=== PATIENT | male | born 1995 | race Caucasian/White ===

== ENCOUNTER 2018-07-15 20:19 | Emergency (ER) | payer BC, OTHER ==
[~2018-07-15] VITALS: Ht 188 cm; Wt 108.9 kg
--- OUTSIDE RECORDS SUMMARY | 2018-07-15 20:25 | XMS REPORT ---
Author Author MANUELA MORALES Organization [facility] Address [address] [place] [address] Care Team Providers Care Modern Languages Professor Name Role Phone MANUELA MORALES Unavailable PROBLEMS Type Condition ICD9-CM Code MLZ36-HY Code Onset Dates Condition Status SNOMED Code Problem Other chronic pain G89.29 Active 13620773 Problem Screening for cystic fibrosis Z13.228 Active [id number] ALLERGIES No Information ENCOUNTERS Encounter Location Date Diagnosis [address] [address] Feb, Family history of diabetes mellitus Z83.[address] [address] Feb, Family history of diabetes mellitus Z83.3 [place] [id number] [place] [address] 8909 Jan, Rash R21 [facility] [place] [id number] [place] [address]38 Nov, Acute non-recurrent maxillary sinusitis J01.00 and BMI 45.0 -49.9, adult Z68.42 [place] [id number] [place] [address] 04261[address] 9739 Oct, Low back pain M54.[address] [address] May, Elevated TSH R94.6 [place] [id number] [place] [address] 58[address] 5113 May, Family history of early CAD Z82.49 ; Lipoma of right upper extremity D17.21 ; Chest pain, unspecified type R07.9 ; Family history of hypertension Z82.49 ; Lipoma of back D17.1 ; Low back pain M54.5 and Other chronic pain G89.29 [facility] [address] [place] [address]10- [address] May, Lipoma of right upper extremity D17.21 ; Lipoma of back D17.1 ; Chest pain, unspecified type R07.9 ; Family history of early CAD Z82.49 ; Family history of hypertension Z82.49 ; Low back pain M54.5 and Other chronic pain G89.29 [facility] WALK IN [place] [id number] [place] [address]3389 Nov, Sore throat J02.9 and Acute non-recurrent streptococcal tonsillitis J03.00 [facility] WALK IN [address] [address] May, Acute suppurative otitis media of left ear without spontaneous rupture of tympanic membrane, recurrence not specified H66.002 [facility] WALK IN [address] [address] Nov, Sore throat J02.9 [facility] [address] [id number] Oct, Visit for dental examination Z01.20 [facility] [address] [id number] Jun, Dental examination Z01.20 [facility] WALK IN [place] [id number] [place] [address]8231 Jun, Pharyngitis J02.9 ; Fever R50.9 and Influenza A J10.1 [facility] [address] [place] [address] 81206- [address] Mar, Screening for cystic fibrosis Z13.228 and Wellness examination Z00.00 [facility] [address] [id number] 14 Mar, 2015 Encounter for dental examination Z01.20 [facility] [address] [place] [address] [place] [id number] Oct, Dental examination V72.2 [facility] [address] [facility] [id number] [place] [id number] Sep, Dental examination V72.2 [facility] [address] [id number] [address] 14 Jul, 2014 [facility] [address] [facility] [id number] [place] [address] Jul, [facility] [address] [facility] [id number] [id number] August, [facility] [address] [id number] [address] August, IMMUNIZATIONS No Known Immunizations SOCIAL HISTORY Never Assessed REASON FOR VISIT Lab (walk-in) PLAN OF CARE Activity Details Pending Test LIPID PANEL Pending Test CMP Pending Test CBC Pending Test TSH VITAL SIGNS MEDICATIONS Unknown Medications RESULTS No Results PROCEDURES Procedure Date Ordered Result Body Site COMPLETE CBC W/AUTO DIFF WBC Mar 18, 2018 COMPREHEN METABOLIC PANEL Mar 18, 2018 LIPID PANEL Mar 18, 2018 ASSAY THYROID STIM HORMONE Mar 18, 2018 VENIPUNCT, ROUTINE* Mar 18, 2018 INSTRUCTIONS MEDICATIONS ADMINISTERED No Known Medications MEDICAL (GENERAL) HISTORY Type Description Date Medical History bronchitis 2014
--- OUTSIDE RECORDS SUMMARY | 2018-07-15 20:25 | XMS REPORT ---
Author Author MANUELA MORALES Organization [facility] Address [address] [place] [address] Care Team Providers Care Real Estate Attorney Name Role Phone MANUELA MORALES Unavailable PROBLEMS Type Condition ICD9-CM Code SAL29-JT Code Onset Dates Condition Status SNOMED Code Problem Other chronic pain G89.29 Active 40677469 Problem Screening for cystic fibrosis Z13.228 Active [id number] ALLERGIES No Information ENCOUNTERS Encounter Location Date Diagnosis [address] [address] Feb, Family history of diabetes mellitus Z83.[address] [address] Jan, Rash R21 [facility] IN [facility] [address] [address] 16 Nov, 2017 Acute non-recurrent maxillary sinusitis J01.00 and BMI 45.0 -49.9, adult Z68.42 [place] [id number] [place] [address] 3943 Oct, Low back pain M54.5 [place] [address] [address] May, Elevated TSH R94.[address] [address] 16 May, 2017 Family history of early CAD Z82.49 ; Lipoma of right upper extremity D17.21 ; Chest pain, unspecified type R07.9 ; Family history of hypertension Z82.49 ; Lipoma of back D17.1 ; Low back pain M54.5 and Other chronic pain G89.29 [facility] [address] [place] [address] May, Lipoma of right upper extremity D17.21 ; Lipoma of back D17.1 ; Chest pain, unspecified type R07.9 ; Family history of early CAD Z82.49 ; Family history of hypertension Z82.49 ; Low back pain M54.5 and Other chronic pain G89.29 [facility] CARE [address] [place] [address] Nov, Sore throat J02.9 and Acute non-recurrent streptococcal tonsillitis J03.00 [facility] WALK IN [address] [address] May, Acute suppurative otitis media of left ear without spontaneous rupture of tympanic membrane, recurrence not specified H66.002 [facility] WALK IN [facility] [address] [place] [address] Nov, Sore throat J02.9 [facility] [address] [id number] Oct, Visit for dental examination Z01.20 [facility] [address] [id number] Jun, Dental examination Z01.20 [facility] WALK IN [address] [address] Jun, Pharyngitis J02.9 ; Fever R50.9 and Influenza A J10.1 [facility] [address] [address] Mar, Screening for cystic fibrosis Z13.228 and Wellness examination Z00.00 [facility] [address] [id number] 14 Mar, 2015 Encounter for dental examination Z01.20 [facility] [address] [id number] Oct, Dental examination V72.2 [facility] [address] [id number] Sep, Dental examination V72.2 [facility] [address] [facility] [id number] [address] Jul, [facility] [address] [facility] [id number] [place] [address] Jul, [facility] 120 [facility] [id number] [id number] August, [facility] [address] [facility] [id number] [place] [address] August, IMMUNIZATIONS No Known Immunizations SOCIAL HISTORY Never Assessed REASON FOR VISIT Labs PLAN OF CARE VITAL SIGNS MEDICATIONS Unknown Medications RESULTS No Results PROCEDURES No Known procedures INSTRUCTIONS MEDICATIONS ADMINISTERED No Known Medications MEDICAL (GENERAL) HISTORY Type Description Date Medical History 2014
--- OUTSIDE RECORDS SUMMARY | 2018-07-15 20:25 | XMS REPORT ---
Author Author MANUELA MORALES Organization [employer] Address Unknown Phone Unavailable Care Team Providers Care Educational Resource Coordinator Name Role Phone MANUELA MORALES CP Unavailable Allergies, Adverse Reactions, Alerts Substance Reaction Event Type Penicillamine Info Not Available Drug Allergy Cefaclor Info Not Available Drug Allergy Problems Problem Type Condition Code Onset Dates Condition Status Problem Lumbago 724.2 Active Assessment Sore throat J02.9 Active Problem Screening for cystic fibrosis Z13.228 Active Medications Medication Code System Code Instructions Start Date End Date Status Dosage Bactrim DS [facility] [address]-14 800-160 MG Orally Twice a day Dec 13, 2015 Dec 23, 2015 1 tablet Procedures Procedure Coding System Code Date Office Visit, Est Pt., Level 3 CPT-4 35187 Dec 13, 2015 STREP A ASSAY W/OPTIC CPT-4 32877 Dec 13, 2015 Vital Signs Date/Time: Dec 13, 2015 Cardiac Monitoring Heart Rate 104 bpm Weight 268.6 lbs Height 62 in BMI 49.12 Index Blood Pressure Diastolic 80 mmHg Blood Pressure Systolic 120 mmHg Results No Known Results Summary Purpose [employer] Submission
--- OUTSIDE RECORDS SUMMARY | 2018-07-15 20:25 | XMS REPORT ---
Author Author MANUELA MORALES Organization [facility] Address [address] [place] [address] Care Team Providers Care Wing Coverer Name Role Phone MANUELA MORALES Unavailable PROBLEMS Type Condition ICD9-CM Code XVT16-PK Code Onset Dates Condition Status SNOMED Code Problem Other chronic pain G89.29 Active 87444934 Problem Screening for cystic fibrosis Z13.228 Active 754772181 ALLERGIES No Information ENCOUNTERS Encounter Location Date Diagnosis [facility] [address] [place] [address]10- [address] May, Elevated TSH R94.[address] [address] 16 May, 2017 Family history of early CAD Z82.49 ; Lipoma of right upper extremity D17.21 ; Chest pain, unspecified type R07.9 ; Family history of hypertension Z82.49 ; Lipoma of back D17.1 ; Low back pain M54.5 and Other chronic pain G89.29 [facility] [address] [place] [id number] [place] [address]327- 8669 12 May, 2017 Lipoma of right upper extremity D17.21 ; Lipoma of back D17.1 ; Chest pain, unspecified type R07.9 ; Family history of early CAD Z82.49 ; Family history of hypertension Z82.49 ; Low back pain M54.5 and Other chronic pain G89.29 [facility] WALK IN [facility] [address] [place] [id number] [place] [address] Nov, Sore throat J02.9 and Acute non-recurrent streptococcal tonsillitis J03.00 [facility] IN [facility] [address] [place] [id number] [place] [address]255 -[address]30 May, Acute suppurative otitis media of left ear without spontaneous rupture of tympanic membrane, recurrence not specified H66.002 [facility] IN CARE [address] [place] [address] -7416 Nov, Sore throat J02.9 [facility] [address] [place] [address] [id number] Oct, Visit for dental examination Z01.20 [facility] [address] [place] [id number] [place] [id number] Jun, Dental examination Z01.20 [facility] IN CARE [address] [place] [id number] [place] [address] -0536 Jun, Pharyngitis J02.9 ; Fever R50.9 and Influenza A J10.1 [facility] [address] [place] [id number] [place] [address] 82903- 8316 Mar, Screening for cystic fibrosis Z13.228 and Wellness examination Z00.00 [facility] [address] [place] [id number] [place] [id number] Mar, Encounter for dental examination Z01.20 [facility] [address] [place] [id number] [place] [address] [id number] Oct, Dental examination V72.2 [facility] [address] [place] [id number] [place] [address] [id number] Sep, Dental examination V72.2 [facility] [address] [place] [address] 42760- 8366 Jul, [facility] [address] [place] [address] 92542- 7806 Jul, [facility] [id number] [place] [id number] August, [facility] [address] [place] [id number] [place] [address] 83867- 6936 August, IMMUNIZATIONS No Known Immunizations SOCIAL HISTORY Never Assessed REASON FOR VISIT lab results PLAN OF CARE VITAL SIGNS MEDICATIONS Unknown Medications RESULTS No Results PROCEDURES No Known procedures INSTRUCTIONS MEDICATIONS ADMINISTERED No Known Medications MEDICAL (GENERAL) HISTORY Type Description Date Medical History bronchitis 2014
--- OUTSIDE RECORDS SUMMARY | 2018-07-15 20:25 | XMS REPORT ---
Author Author MANUELA MORALES Organization [facility] Address [address] [place] [address] Care Team Providers Care Agriculture Laboratory Technician Name Role Phone MANUELA MORALES Unavailable PROBLEMS Type Condition ICD9-CM Code LPU46-NK Code Onset Dates Condition Status SNOMED Code Problem Other chronic pain G89.29 Active 97247463 Problem Screening for cystic fibrosis Z13.228 Active 671351571 ALLERGIES Substance Reaction Event Type Date Status Penicillamine Unknown Drug Allergy Oct, Active Cefaclor Unknown Drug Allergy Oct, Active ENCOUNTERS Encounter Location Date Diagnosis [facility]ALK IN [facility] [address] [place] [id number] [place] [address] Nov, Acute non-recurrent maxillary sinusitis J01.00 and BMI 45.0 -49.9, adult Z68.42 [facility] [address] [place] [id number] [place] [address] 43099- 7760 Oct, Low back pain M54.5 [facility] [address] [place] [id number] [place] [address] 66122- 7489 May, Elevated TSH R94.[address] [address]- [address]67 May, Family history of early CAD Z82.49 ; Lipoma of right upper extremity D17.21 ; Chest pain, unspecified type R07.9 ; Family history of hypertension Z82.49 ; Lipoma of back D17.1 ; Low back pain M54.5 and Other chronic pain G89.29 [facility] [address] [place] [id number] [place] [address] 84318- 9109 12 May, 2017 Lipoma of right upper extremity D17.21 ; Lipoma of back D17.1 ; Chest pain, unspecified type R07.9 ; Family history of early CAD Z82.49 ; Family history of hypertension Z82.49 ; Low back pain M54.5 and Other chronic pain G89.29 [facility] [address] [address] Nov, Sore throat J02.9 and Acute non-recurrent streptococcal tonsillitis J03.00 [facility] WALK IN [facility] [address] [place] [address] 14354 -4916 May, Acute suppurative otitis media of left ear without spontaneous rupture of tympanic membrane, recurrence not specified H66.002 [facility] WALK IN [facility] [address] [place] [address] 90483 -1809 Nov, Sore throat J02.9 [facility] [address] [id number] Oct, Visit for dental examination Z01.20 [facility] [address] [id number] Jun, Dental examination Z01.20 [facility] WALK IN [facility] [address] [place] [id number] [place] [address] Jun, Pharyngitis J02.9 ; Fever R50.9 and Influenza A J10.[address] [address] Mar, Screening for cystic fibrosis Z13.228 and Wellness examination Z00.00 [facility] [address] [id number] Mar, Encounter for dental examination Z01.20 [facility] [address] [id number] Oct, Dental examination V72.2 [facility] [address] [id number] Sep, Dental examination V72.2 [facility] [address] [place] [address] [id number]- 3433 Jul, [facility] [address] [facility] [id number] [place] [address] Jul, [facility] [address] [facility] [id number] [place] [id number] August, [facility] [address] [facility] [id number] [place] [address] August, IMMUNIZATIONS No Known Immunizations SOCIAL HISTORY Never Assessed REASON FOR VISIT sciatica PLAN OF CARE VITAL SIGNS MEDICATIONS Medication Instructions Dosage Frequency Start Date End Date Duration Status PredniSONE 20 mg Orally Once a day 2 tablets 24h Oct, Oct, 05 days Active Meloxicam 7.5 MG Orally twice a day 1 tablet 12h Oct, 30 day(s ) Active RESULTS No Results PROCEDURES No Known procedures INSTRUCTIONS MEDICATIONS ADMINISTERED No Known Medications MEDICAL (GENERAL) HISTORY Type Description Date Medical History bronchitis 2014
--- OUTSIDE RECORDS SUMMARY | 2018-07-15 20:25 | XMS REPORT ---
Author Author ANDRE ERNANDEZ [facility] Address [address] [place] [address] Care Team Providers Care Membership Secretary Name Role Phone ANDRE ERNANDEZ Unavailable PROBLEMS Type Condition ICD9-CM Code QSM71-UA Code Onset Dates Condition Status SNOMED Code Problem Other chronic pain G89.29 Active 94496740 Problem Screening for cystic fibrosis Z13.228 Active 329820259 ALLERGIES Substance Reaction Event Type Date Status Penicillamine Unknown Drug Allergy Nov, Active Cefaclor Unknown Drug Allergy Nov, Active ENCOUNTERS Encounter Location Date Diagnosis [facility] [address] [address] Feb, Family history of diabetes mellitus Z83.3 [facility] [address] [address] Feb, Family history of diabetes mellitus Z83.3 [place] [address] [address] Jan, Rash R21 [facility] IN [facility] [address] [place] [id number] [place] [address] -[address] Nov, Acute non-recurrent maxillary sinusitis J01.00 and BMI 45.0 -49.9, adult Z68.42 [facility] [address] [place] [id number] [place] [address]972- 4643 Oct, Low back pain M54.5 [place] [address] [address] May, Elevated TSH R94.6 [place] [address] [address] May, Family history of early CAD Z82.49 ; Lipoma of right upper extremity D17.21 ; Chest pain, unspecified type R07.9 ; Family history of hypertension Z82.49 ; Lipoma of back D17.1 ; Low back pain M54.5 and Other chronic pain G89.29 [facility] [address] [place] [address]38- 38[address] May, Lipoma of right upper extremity D17.21 ; Lipoma of back D17.1 ; Chest pain, unspecified type R07.9 ; Family history of early CAD Z82.49 ; Family history of hypertension Z82.49 ; Low back pain M54.5 and Other chronic pain G89.29 [facility] W[facility] IN [address] [address] Nov, Sore throat J02.9 and Acute non-recurrent streptococcal tonsillitis J03.00 [facility] IN [address] [address] May, Acute suppurative otitis media of left ear without spontaneous rupture of tympanic membrane, recurrence not specified H66.002 [facility] IN [address] [address] Nov, Sore throat J02.9 [facility] [address] [id number] Oct, Visit for dental examination Z01.20 [facility] [address] [id number] Jun, Dental examination Z01.20 [facility] IN [address] [address] Jun, Pharyngitis J02.9 ; Fever R50.9 and Influenza A J10.1 [facility] [address] [place] [address] 36523- 2[address] Mar, Screening for cystic fibrosis Z13.228 and Wellness examination Z00.00 [facility] [address] [id number] [id number] Mar, Encounter for dental examination Z01.20 [facility] [address] [place] [id number] [id number] Oct, Dental examination V72.2 [facility] [address] [facility] [id number] [id number] Sep, Dental examination V72.2 [facility] [address], [place] [address] Jul, [facility] [address] [facility] [id number], [place] [address] Jul, [facility] [id number] [id number] August, [facility] [address] [facility] [id number], [place] [address] August, IMMUNIZATIONS Vaccine Route Administration Date Status DEXAMETHASONE 4MG/ML (PER 1 MG) OTH Other/Miscellaneous Dec 11, 2017 Administered DEPO MEDROL 40 MG/ML IM Intramuscular Dec 11, 2017 Administered SOCIAL HISTORY Never Assessed REASON FOR VISIT congestion x2 weeks- has tried multiple OTC JStrasserRN PLAN OF CARE Activity Details Follow Up prn Reason: VITAL SIGNS Height 62 in 2017-12-11 Weight 250.4 lbs 2017-12-11 Temperature 97.8 degrees Fahrenheit 2017-12-11 Heart Rate 80 bpm 2017-12-11 Respiratory Rate 20 2017-12-11 BMI 45.79 kg/m2 2017-12-11 Blood pressure systolic 130 mmHg 2017-12-11 Blood pressure diastolic 88 mmHg 2017-12-11 MEDICATIONS Medication Instructions Dosage Frequency Start Date End Date Duration Status Flonase 50 MCG/ACT Nasally Once a day 1 spray in each nostril 24h Nov, 30 day(s) Active Cyclobenzaprine HCl 10 mg Orally 2 times a day 1 tablet as needed 12h 12 May, 2017 Active Azithromycin 250 MG Orally Once a day 2 tablets on the first day, then 1 tablet daily for 4 days 24h Nov, Nov, 5 day(s) Active Meloxicam 7.5 MG Orally twice a day 1 tablet 12h 17 Oct, 2017 30 day(s ) Active Zyrtec Allergy 10 MG Orally Once a day 1 tablet 24h 16 Nov, 2017 15 Dec, 2017 30 day(s) Active RESULTS No Results PROCEDURES Procedure Date Ordered Result Body Site DEPO MEDROL 40 MG/ML Dec 11, 2017 DEXAMETHASONE 4MG/ML (PER 1 MG) Dec 11, 2017 THER/PROPH/DIAG INJ, SC/IM Dec 11, 2017 INSTRUCTIONS MEDICATIONS ADMINISTERED No Known Medications MEDICAL (GENERAL) HISTORY Type Description Date Medical History bronchitis 2014
--- OUTSIDE RECORDS SUMMARY | 2018-07-15 20:25 | XMS REPORT ---
Author Author MANUELA MORALES Organization [facility] Address [address] [place] [address] Care Team Providers Care Educational Manager Name Role Phone MANUELA MORALES Unavailable PROBLEMS Type Condition ICD9-CM Code [id number] Code Onset Dates Condition Status SNOMED Code Problem Other chronic pain G89.29 Active 73941063 Problem Screening for cystic fibrosis Z13.228 Active 170577505 ALLERGIES Substance Reaction Event Type Date Status Penicillamine Unknown Drug Allergy May, Active Cefaclor Unknown Drug Allergy May, Active ENCOUNTERS Encounter Location Date Diagnosis [id number] [place] [phone] May, Elevated TSH R94.6 [place] [id number] [place] [address] 4804 16 May, 2017 Family history of early CAD Z82.49 ; Lipoma of right upper extremity D17.21 ; Chest pain, unspecified type R07.9 ; Family history of hypertension Z82.49 ; Lipoma of back D17.1 ; Low back pain M54.5 and Other chronic pain G89.29 [address] [place] [address] [phone] May, Lipoma of right upper extremity D17.21 ; Lipoma of back D17.1 ; Chest pain, unspecified type R07.9 ; Family history of early CAD Z82.49 ; Family history of hypertension Z82.49 ; Low back pain M54.5 and Other chronic pain G89.29 [facility] [address] [place] [phone] Nov, Sore throat J02.9 and Acute non-recurrent streptococcal tonsillitis J03.00 [facility] [address], [place] [address] May, Acute suppurative otitis media of left ear without spontaneous rupture of tympanic membrane, recurrence not specified H66.002 [facility] [address] [place] [phone] Nov, Sore throat J02.9 [facility] [id number] [place] [address] [phone] Oct, Visit for dental examination Z01.20 [facility] [id number] [place] [address] [phone] Jun, Dental examination Z01.20 [facility] [id number] [place] [phone] Jun, Pharyngitis J02.9 ; Fever R50.9 and Influenza A J10.1 [facility] [id number] [place] [address] [phone] Mar, Screening for cystic fibrosis Z13.228 and Wellness examination Z00.00 [facility] [id number] [place] [address] [phone] Mar, Encounter for dental examination Z01.20 [facility] [id number] [place] [address] [phone] Oct, Dental examination V72.2 [facility] [id number] [place] [address] [phone] Sep, Dental examination V72.2 [facility] [address] [place] [address] [phone] Jul, [facility] [id number] [place] [address] [phone] Jul, [facility] [id number] [place] [address] [phone] August, [facility] [id number] [place] [address] [phone] August, IMMUNIZATIONS No Known Immunizations SOCIAL HISTORY Never Assessed REASON FOR VISIT bumps on arm/ all over. JjournotRDionna, back pain/ cyst. , Chest pain radiating to arm x 4 months off and on- nose bleeds when this happens. Not currently experiencing pain. [place] PLAN OF CARE VITAL SIGNS Height 62 in 2017-06-09 Weight 250.2 lbs 2017-06-09 Temperature 98.2 degrees Fahrenheit 2017-06-09 Heart Rate 76 bpm 2017-06-09 Respiratory Rate 20 2017-06-09 BMI 45.76 kg/m2 2017-06-09 Blood pressure systolic 130 mmHg 2017-06-09 Blood pressure diastolic 88 mmHg 2017-06-09 MEDICATIONS Medication Instructions Dosage Frequency Start Date End Date Duration Status Tamiflu 75 MG Orally Twice a day 1 capsule 12h Jun, 5 day(s) Not-Taking Cyclobenzaprine HCl 10 mg Orally 2 times a day 1 tablet as needed 12h 12 May, 2017 Active Zofran 8 MG Orally 2 times a day 1 tablet 12h Jun, 03 days Not -Taking PredniSONE 20 mg Orally Once a day 2 tablets 24h 12 May, 2017 17 May, 2017 05 days Active Diclofenac Sodium 75 MG Orally Twice a day 1 tablet with food or milk 12h 12 May, 2017 August, 30 day(s) Active Ibuprofen 800 mg take 1 tablet by Oral route 3 times per day with food PRN take w food August, Not-Taking Tylenol 8 Hour 650 MG Orally every 8 hrs PRN 1 tablet as needed Not-Taking RESULTS No Results PROCEDURES Procedure Date Ordered Result Body Site ELECTROCARDIOGRAM, TRACING Jun 09, 2017 INSTRUCTIONS MEDICATIONS ADMINISTERED No Known Medications MEDICAL (GENERAL) HISTORY Type Description Date Medical History bronchitis 2014
--- OUTSIDE RECORDS SUMMARY | 2018-07-15 20:25 | XMS REPORT ---
Author Author KALYAN MOODY Organization [employer] Address Unknown Phone Unavailable Care Team Providers Care File Conversion Operator Name Role Phone KALYAN MOODY CP Unavailable Allergies, Adverse Reactions, Alerts Substance Reaction Event Type Penicillamine Info Not Available Drug Allergy Cefaclor Info Not Available Drug Allergy Problems Problem Type Condition Code Onset Dates Condition Status Assessment Encounter for dental examination Z01.20 Active Problem Lumbago 724.2 Active Medications No Known Medications Procedures Procedure Coding System Code Date BITEWING - SINGLE FILM CPT-4 D0270 Apr 10, 2015 PROPHYLAXIS - ADULT CPT-4 D1110 Apr 10, 2015 PERIODIC ORAL EXAMINATION CPT-4 D0120 Apr 10, 2015 TOPICAL FLUORIDE VARNISH CPT-4 D1206 Apr 10, 2015 Vital Signs Date/Time: Apr 10, 2015 Blood Pressure Diastolic 79 mmHg Blood Pressure Systolic 119 mmHg Results No Known Results Summary Purpose [employer] Submission
--- OUTSIDE RECORDS SUMMARY | 2018-07-15 20:25 | XMS REPORT ---
Author Author KOTA BONILLA [facility] [employer] Address Unknown Phone Unavailable Care Team Providers Care Shoe Dyer Name Role Phone KOTA BONILLA CP Unavailable Allergies No Known Allergies Problems Problem Type Condition ICD-9 Code Onset Dates Condition Status Assessment Dental examination V72.2 Active Problem Lumbago 724.2 Active Medications No Known Medications Procedures Procedure Coding System Code Date PULP CAP - INDIRECT CPT-4 D3120 November 18, 2014 Results No Known Results Summary Purpose [employer] Submission
--- OUTSIDE RECORDS SUMMARY | 2018-07-15 20:26 | XMS REPORT | Continuity of Care Document ---
Author Author [facility] Address Unknown Phone Unavailable Allergies Active Description Code Type Severity Reaction Onset Reported/Identified Relationship to Patient Clinical Status Yes Ceclor Drug Allergy N/A N/A 06/20/2009 Yes Penicillins Drug Allergy N/A N/A 06/20/2009 Medications There is no data. Problems Date Dx Coded Attending Type Code Diagnosis Diagnosed By 06/20/2009 RAIMUNDO ASIF DO 034.0 STREPTOCOCCAL SORE THROAT 06/20/2009 ADELAIDE CHAN APRN 034.0 STREPTOCOCCAL SORE THROAT 04/30/2010 RAIMUNDO ASIF DO 719.47 PAIN IN JOINT INVOLVING ANKLE AND FOOT 04/30/2010 ADELAIDE CHAN APRN 719.47 PAIN IN JOINT INVOLVING ANKLE AND FOOT 09/28/2010 RAIMUNDO ASIF DO 465.9 UPPER RESPIRATORY INFECTION 09/28/2010 ADELAIDE CHAN APRN 465.9 UPPER RESPIRATORY INFECTION 09/08/2013 RAIMUNDO ASIF DO 724.2 BACK PAIN, LOWER 09/08/2013 ADELAIDE CHAN APRN 724.2 BACK PAIN, LOWER 08/03/2014 ADELAIDE CHAN APRN 382.9 UNSPECIFIED OTITIS MEDIA 08/03/2014 ADELAIDE CHAN APRN 466.0 BRONCHITIS, ACUTE Procedures Code [place] [address] UA LONG DIP 09/08/2013 77563 NEBULIZER TREATMENT 08/03/2014 06115 OXIMETRY 08/03/2014 Results Test Result Range TSH - 06/13/17 08:26 TSH 0.35 mIU/L 0.40-4.50 LIPID PANEL - 03/18/18 08:45 CHOLESTEROL, TOTAL 136 mg/dL <200 HDL CHOLESTEROL 47 mg/dL >40 TRIGLYCERIDES 41 mg/dL <150 LDL-CHOLESTEROL 77 mg/dL (calc) NRG CHOL/HDLC RATIO 2.9 (calc) <5.0 NON HDL CHOLESTEROL 89 mg/dL (calc) <130 Encounters ACCT No. Visit Date/Time Discharge Status Pt. Type Provider Facility Loc./Unit Complaint [id number] 08/03/2014 15:18:00 08/03/2014 23:59:59 [facility] Outpatient ADELAIDE CHAN APRN [id number] 09/08/2013 10:20:00 09/08/2013 23:59:59 [facility] [place] [place] [id number] 05/22/2018 08:50:00 05/22/2018 23:59:59 [facility] Outpatient MANUELA MORALES APRN [facility] [id number] 03/18/2018 09:00:00 Document Registration [id number] 06/13/2017 08:00:00 Document Registration
--- OUTSIDE RECORDS SUMMARY | 2018-07-15 20:26 | XMS REPORT ---
Author Author JHONATAN Shaffer [facility]ALK IN [facility] Address [address] [place] [address] Care Team Providers Care Print Developer Automatic Name Role Phone JHONATAN Shaffer Unavailable PROBLEMS Type Condition ICD9-CM Code [id number] Code Onset Dates Condition Status SNOMED Code Problem Other chronic pain G89.29 Active 58764356 Problem Screening for cystic fibrosis Z13.228 Active 780935990 ALLERGIES Substance Reaction Event Type Date Status Penicillamine Unknown Drug Allergy Nov, Active Cefaclor Unknown Drug Allergy Nov, Active ENCOUNTERS Encounter Location Date Diagnosis [facility] [address] [place] [phone] May, Elevated TSH R94.6 [facility] [id number] [place] [address] [phone] 16 May, 2017 Family history of early CAD Z82.49 ; Lipoma of right upper extremity D17.21 ; Chest pain, unspecified type R07.9 ; Family history of hypertension Z82.49 ; Lipoma of back D17.1 ; Low back pain M54.5 and Other chronic pain G89.29 [facility] [id number] [place] [address] [phone] 12 May, 2017 Lipoma of right upper extremity D17.21 ; Lipoma of back D17.1 ; Chest pain, unspecified type R07.9 ; Family history of early CAD Z82.49 ; Family history of hypertension Z82.49 ; Low back pain M54.5 and Other chronic pain G89.29 [facility] [address] [place] [phone] Nov, Sore throat J02.9 and Acute non-recurrent streptococcal tonsillitis J03.00 [facility] [address], [place] [address] May, Acute suppurative otitis media of left ear without spontaneous rupture of tympanic membrane, recurrence not specified H66.002 [facility] [address] [place] [address] [phone] Nov, Sore throat J02.9 [facility] [address] [phone] Oct, Visit for dental examination Z01.20 [facility] [address] [phone] Jun, Dental examination Z01.20 [facility] [id number] [place] [address] [phone] Jun, Pharyngitis J02.9 ; Fever R50.9 and Influenza A J10.1 [facility] [id number] [place] [address] [phone] Mar, Screening for cystic fibrosis Z13.228 and Wellness examination Z00.00 [facility] [id number] [place] [address] [phone] Mar, Encounter for dental examination Z01.20 [facility] [id number] [place] [address] [phone] Oct, Dental examination V72.2 [facility] [id number] [place] [address] [phone] Sep, Dental examination V72.2 [facility] [address] [place] [address] [phone] Jul, [facility] [id number] [place] [address] [phone] Jul, [address] [place] [address] [phone] August, [facility] [id number] [place] [address] [phone] August, IMMUNIZATIONS No Known Immunizations SOCIAL HISTORY Never Assessed REASON FOR VISIT Sore throat for 2 days. head congestion also. payal, also has been getting severe headaches lately at work while. was wondering what he could take besides motrin PLAN OF CARE Activity Details Follow Up prn Reason: VITAL SIGNS Height 62 in 2016-12-24 Weight 277.6 lbs 2016-12-24 Temperature 98.0 degrees Fahrenheit 2016-12-24 Heart Rate 78 bpm 2016-12-24 Respiratory Rate 20 2016-12-24 BMI 50.77 kg/m2 2016-12-24 Blood pressure systolic 130 mmHg 2016-12-24 Blood pressure diastolic 80 mmHg 2016-12-24 MEDICATIONS Medication Instructions Dosage Frequency Start Date End Date Duration Status Azithromycin 250 MG Orally Once a day 2 tablets on the first day, then 1 tablet daily for 4 days 24h Nov, Dec, 5 day(s) Active RESULTS Name Result Date Reference Range STREP A (IN HOUSE) 2016-12-24 STREP A positive Control + Lot # [id number] Exp date jun 16 PROCEDURES Procedure Date Ordered Result Body Site STREP A ASSAY W/OPTIC Dec 24, 2016 INSTRUCTIONS MEDICATIONS ADMINISTERED No Known Medications MEDICAL (GENERAL) HISTORY Type Description Date Medical History bronchitis 2014
--- OUTSIDE RECORDS SUMMARY | 2018-07-15 20:26 | XMS REPORT ---
Author Author AND[facility] FERNANDEZ [facility] Address [address] [place] [address] Care Team Providers Care Nuclear Medicine Medical Director Name Role Phone ANDRE FERNANDEZ Unavailable PROBLEMS Type Condition ICD9-CM Code QJZ39-QG Code Onset Dates Condition Status SNOMED Code Problem Screening for cystic fibrosis Z13.228 Active 261303600 Problem Lumbago 724.2 Active 163569266 ALLERGIES Substance Reaction Event Type Date Status Penicillamine Unknown Drug Allergy May, Active Cefaclor Unknown Drug Allergy May, Active SOCIAL HISTORY Never Assessed PLAN OF CARE Activity Details Follow Up prn Reason: VITAL SIGNS Height 62 in 2016-06-18 Weight 285.2 lbs 2016-06-18 Temperature 98.2 degrees Fahrenheit 2016-06-18 Heart Rate 92 bpm 2016-06-18 Respiratory Rate 20 2016-06-18 BMI 52.16 kg/m2 2016-06-18 Blood pressure systolic 120 mmHg 2016-06-18 Blood pressure diastolic 86 mmHg 2016-06-18 MEDICATIONS Medication Instructions Dosage Frequency Start Date End Date Duration Status Azithromycin 250 MG Orally Once a day 2 tablets on the first day, then 1 tablet daily for 4 days 24h May, May, 5 day(s) Active RESULTS No Results PROCEDURES No Known procedures IMMUNIZATIONS No Known Immunizations MEDICAL (GENERAL) HISTORY Type Description Date Medical History bronchitis 2014
--- OUTSIDE RECORDS SUMMARY | 2018-07-15 20:26 | XMS REPORT ---
Author Author TRACEY JJ Organization [employer] Address Unknown Phone Unavailable Care Team Providers Care Dry Plasterer Helper Name Role Phone TRACEY JJ CP Unavailable Allergies, Adverse Reactions, Alerts Substance Reaction Event Type Penicillamine Info Not Available Drug Allergy Cefaclor Info Not Available Drug Allergy Problems Problem Type Condition Code Onset Dates Condition Status Problem Lumbago 724.2 Active Assessment Screening for cystic fibrosis Z13.228 Active Problem Screening for cystic fibrosis Z13.228 Active Assessment Wellness examination Z00.00 Active Medications No Known Medications Procedures Procedure Coding System Code Date GLYCATED HEMOGLOBIN TEST CPT-4 28894 Apr 27, 2015 COMPREHEN METABOLIC PANEL CPT-4 75780 Apr 27, 2015 CFTR GENE COM VARIANTS CPT-4 75809 Apr 27, 2015 VENIPUNCT, ROUTINE* CPT-4 89642 Apr 27, 2015 ASSAY THYROID STIM HORMONE CPT-4 56712 Apr 27, 2015 COMPLETE CBC W/AUTO DIFF WBC CPT-4 05808 Apr 27, 2015 Office Visit, Est Pt., Level 3 CPT-4 38842 Apr 27, 2015 LIPID PANEL CPT-4 12928 Apr 27, 2015 Vital Signs Date/Time: Apr 27, 2015 Temperature 97.7 F Weight 252 lbs Height 62 in BMI 46.09 Index Blood Pressure Diastolic 74 mmHg Blood Pressure Systolic 118 mmHg Cardiac Monitoring Heart Rate 80 bpm BMIPercentile 99.84 % Wt Percentile 99.26 % Results Name Result Date Reference Range Unit Abnormality Flag CBC ----Lymphs 32 92598421 % ----Neutrophils 58 01237161 % ----Baso (Absolute) 0.0 [id number] 0.0-0.2 x10E3/uL ----Hemoglobin 14.8 47298644 12.6-17.7 g/dL ----Eos (Absolute) 0.2 21494419 0.0-0.4 x10E3/uL ----Hematocrit 43.9 49966684 37.5-51.0 % ----Monocytes(Absolute) 0.6 66372284 0.1-0.9 x10E3/uL ----MCV 89 91777088 79-97 fL ----Lymphs (Absolute) 2.5 02091526 0.7-3.1 x10E3/uL ----MCH 30.1 11080419 26.6-33.0 pg ----Neutrophils (Absolute) 4.5 93623511 1.4-7.0 x10E3/uL ----MCHC 33.7 54071938 31.5-35.7 g/dL ----Immature Granulocytes 0 85378464 % ----Basos 0 52797853 % ----RDW 13.2 08131312 12.3-15.4 % ----Immature Grans (Abs) 0.0 70289846 0.0-0.1 x10E3/uL ----WBC 7.8 48403223 3.4-10.8 x10E3/uL ----Platelets 212 88157557 150-379 x10E3/uL ----Eos 2 63326604 % ----RBC 4.91 07366271 4.14-5.80 x10E6/uL ----Monocytes 8 90666146 % LIPID PANEL ----LDL Cholesterol Calc 86 98347921 0-109 mg/dL ----VLDL Cholesterol Magen 13 98706661 5-40 mg/dL ----Cholesterol, Total 147 27770492 100-169 mg/dL ----HDL Cholesterol 48 43995354 >39 mg/dL ----Triglycerides 63 26889992 0-89 mg/dL CYSTIC FIBROSIS MUTATION 97 ----Interpretation: One variant detected. [id number] A TSH ----TSH 2.360 82521068 0.450-4.500 uIU/mL CMP ----Potassium, Serum 4.5 47465428 3.5-5.2 mmol/L ----Sodium, Serum 142 06778776 134-144 mmol/L ----BUN/Creatinine Ratio 10 20150427 8- ----eGFR If Africn Am 118 51455592 >59 mL/min/1.73 ----eGFR If NonAfricn Am 102 76843068 >59 mL/min/1.73 ----Creatinine, Serum 1.05 55691303 0.76-1.27 mg/dL ----BUN 10 52184091 6-20 mg/dL ----Glucose, Serum 91 29547364 65-99 mg/dL ----AST (SGOT) 16 18474165 0-40 IU/L ----Globulin, Total 2.5 89822973 1.5-4.5 g/dL ----ALT (SGPT) 22 96655727 0-44 IU/L ----A/G Ratio 1.9 62340076 1.1-2.5 ----Bilirubin, Total 0.4 36650416 0.0-1.2 mg/dL ----Alkaline Phosphatase, S 113 67961400 39-117 IU/L ----Carbon Dioxide, Total 27 86418589 18-29 mmol/L ----Calcium, Serum 10.1 36943351 8.7-10.2 mg/dL ----Protein, Total, Serum 7.3 60875480 6.0-8.5 g/dL ----Albumin, Serum 4.8 35569544 3.5-5.5 g/dL ----Chloride, Serum 103 99499005 97-108 mmol/L PDF Report ----PDF Report1 [facility] [id number] Summary Purpose eClinicalWorks Submission
--- NOTE | 2018-07-15 20:46 | ED Chest Pain ---
General Chief Complaint: Chest Wall/Rib Pain Stated Complaint: CHEST PAIN Nursing Triage Note: c/o intermittant left chest pain, bilateral hand numbness x1 hr. reports stopping prozac approx. 3weeks ago. Nursing Sepsis Screen: No Definite Risk Source: patient Exam Limitations: no limitations History of Present Illness Date Seen by Provider: Jul 15, 2018 Time Seen by Provider: 20:56 Initial Comments 22-year-old male patient presents to the emergency department complaining of intermittent left chest pain beginning this afternoon while walking home from the park with his son. Pain radiates to the right side of the chest. Sharp in nature. Worse with deep breaths, movement. He reports bilateral hand tingling/ numbness times one hour which has resolved. Also noticed chills, rhinorrhea, nasal congestion, sore throat beginning this afternoon. 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 Patient stopped his Prozac 3 wks ago. He states he didn't feel like he needed it anymore. Last seen by Emile Boles in March. Currently on Pepcid for reflux and gastritis. Timing/Duration: 4-6 hours Severity/Quality: sharp Location: other (left chest) Radiation: other (radiates to the right chest.) Activities at Onset: other (walking home from the Park) Prior CP/Workup: no prior chest pain, no prior cardiac workup Modifying Factors: worse with breathing, worse with movement ASA po WHITE SOURER: No NTG SL WHITE SOURER: No Allergies and Home Medications Allergies Coded Allergies: Penicillins (Verified Allergy, Unknown, 07/15/18) cefaclor (Verified Allergy, Unknown, 07/15/18) Home Medications Albuterol Sulfate 1 Puff Puff, 2 PUFF IH Q6H PRN for SHORTNESS OF BREATH 1 PUFF = 90 MCG Prescribed by: KIMBERLY ESPARZA on 07/15/18 8109 Patient Home Medication List Home Medication List Reviewed: Yes Review of Systems Review of Systems Constitutional: chills; No diaphoresis, No dizziness, No fever; malaise EENTM: No Blurred Vision, No Double Vision, No Eye Pain, No Ear Pain; Nose Congestion, Throat Pain Respiratory: Denies Cough, Denies Orthopnea, Denies Shortness of Air, Denies SOA With Exertion, Denies Stridor, Denies Wheezing Cardiovascular: See HPI, Chest Pain; Denies Edema, Denies Irregular Heart Rate , Denies Lightheadedness, Denies Palpitations, Denies Syncope Gastrointestinal: Denies Abdomen Distended, Denies Abdominal Pain, Denies Constipated, Denies Diarrhea, Denies Difficulty Swallowing, Denies Nausea, Denies Poor Appetite, Denies Poor Fluid Intake, Denies Rectal Bleeding, Denies Vomiting Genitourinary: No Symptoms Reported Musculoskeletal: other (generalized bodyaches) Skin: no symptoms reported Psychiatric/Neurological: No Symptoms Reported Endocrine: No Symptoms Reported All Other Systems Reviewed Negative Unless Noted: Yes (Negative excepted noted.) Past Hrwjuis-Uscktz-Ownrdc Hx Past Med/Social Hx: Reviewed Nursing Past Med/Soc Hx Patient Social History Alcohol Use: Rarely Uses Recreational Drug Use: No Smoking Status: Never a Smoker Type Used: Smokeless Tobacco 2nd Hand Smoke Exposure: No Recent Foreign Travel: No Contact w/Someone Who Travel: No Recent Infectious Disease Expo: No Recent Hopitalizations: No Immunizations Up To Date Tetanus Booster (TDap): Unknown PED Vaccines UTD: Yes Seasonal Allergies Seasonal Allergies: No Past Medical History Surgeries: No Respiratory: No Cardiac: No Neurological: No Genitourinary: No Gastrointestinal: Yes Gastroesophageal Reflux Musculoskeletal: No Endocrine: No HEENT: No Cancer: No Psychosocial: Yes Anxiety, Depression Integumentary: No Blood Disorders: No Family Medical History Reviewed Nursing Family Hx No Pertinent Family Hx Physical Exam Vital Signs Vital Signs - First Documented 07/15/18 20:22 Temp 99.3 Pulse 90 Resp 20 B/P (MAP) 133/81 (98) Pulse Ox 98 O2 Delivery Room Air Capillary Refill : Less Than 3 Seconds Height, Weight, BMI Height: 6'2.00" Weight: 240lbs. oz. 108.596075dj; BMI Method:Stated General Appearance: No Apparent Distress, WD/WN HEENT: PERRL/EOMI, Pharyngeal Erythema; No Tonsillar Exudate; Tonsillar Enlargement, Other ((+) nasal congestion, rhinorrhea, slight swelling to the turbinates bilaterally. (+) fluid to the right TM without erythema or bulging. ) Neck: Full Range of Motion, Normal Inspection, Non Tender, Supple Respiratory: Lungs Clear, Normal Breath Sounds, No Accessory Muscle Use, No Respiratory Distress, Other (right sternocostal border TTP) Cardiovascular: Regular Rate, Rhythm, No Edema, No Gallop, No JVD, No Murmur, Normal Peripheral Pulses Gastrointestinal: Normal Bowel Sounds, No Organomegaly, Non Tender, Soft Extremity: Normal Capillary Refill, No Calf Tenderness, No Pedal Edema Neurologic/Psychiatric: Alert, Oriented x3, No Motor/Sensory Deficits, Normal Mood/Affect, sales attendant II-XII Norm as Tested Skin: Normal Color, Warm/Dry Progress/Results/Core Measures Results/Orders Lab Results Laboratory Tests Test 07/15/18 21:15 Range/Units White Blood Count 14.9 H 4.3-11.0 10^3/uL Red Blood Count 4.48 4.35-5.85 10^6/uL Hemoglobin 13.8 13.3-17.7 G/DL Hematocrit 40 40-54 % Mean Corpuscular Volume 88 80-99 FL Mean Corpuscular Hemoglobin 31 25-34 PG Mean Corpuscular Hemoglobin Concent 35 32-36 G/DL Red Cell Distribution Width 12.9 10.0-14.5 % Platelet Count 176 130-400 10^3/uL Mean Platelet Volume 11.4 H 7.4-10.4 FL Neutrophils (%) (Auto) 83 H 42-75 % Lymphocytes (%) (Auto) 11 L 12-44 % Monocytes (%) (Auto) 5 0-12 % Eosinophils (%) (Auto) 1 0-10 % Basophils (%) (Auto) 0 0-10 % Neutrophils # (Auto) 12.3 H 1.8-7.8 X 10^3 Lymphocytes # (Auto) 1.6 1.0-4.0 X 10^3 Monocytes # (Auto) 0.8 0.0-1.0 X 10^3 Eosinophils # (Auto) 0.1 0.0-0.3 10^3/uL Basophils # (Auto) 0.0 0.0-0.1 10^3/uL Neutrophils % (Manual) 77 % Lymphocytes % (Manual) 17 % Monocytes % (Manual) 3 % Eosinophils % (Manual) 2 % Basophils % (Manual) 1 % Band Neutrophils 0 % Blood Morphology Comment NORMAL Erythrocyte Sedimentation Rate 8 0-15 MM/HR Sodium Level 141 135-145 MMOL/L Potassium Level 3.8 3.6-5.0 MMOL/L Chloride Level 108 H 98-107 MMOL/L Carbon Dioxide Level 22 21-32 MMOL/L Anion Gap 11 5-14 MMOL/L Blood Urea Nitrogen 13 7-18 MG/DL Creatinine 0.92 0.60-1.30 MG/DL Estimat Glomerular Filtration Rate > 60 BUN/Creatinine Ratio 14 Glucose Level 99 70-105 MG/DL Calcium Level 9.7 8.5-10.1 MG/DL Corrected Calcium 9.4 8.5-10.1 MG/DL Magnesium Level 2.1 1.8-2.4 MG/DL Total Bilirubin 0.6 0.1-1.0 MG/DL Aspartate Amino Transf (AST/SGOT) 18 5-34 U/L Alanine Aminotransferase (ALT/SGPT) 22 0-55 U/L Alkaline Phosphatase 96 40-136 U/L Troponin I < 0.028 <0.028 NG/ML C-Reactive Protein High Sensitivity 0.31 0.00-0.50 MG/DL Total Protein 7.1 6.4-8.2 GM/DL Albumin 4.4 3.2-4.5 GM/DL TSH [place] Testing 1.52 0.35-4.94 UIU/ML Micro Results Microbiology 07/15/18 Influenza Types A,B Antigen ([facility]) - Final, Complete My Orders Orders - KIMBERLY ESPARZA PA Chest 1 View, Ap/Pa Only (07/15/18 20:54) Cbc With Automated Diff (07/15/18 20:54) Comprehensive Metabolic Panel (07/15/18 20:54) Magnesium (07/15/18 20:54) Thyroid Analyzer (07/15/18 20:54) Troponin I (07/15/18 20:54) Saline Lock/Iv-Start (07/15/18 20:54) Ekg Tracing (07/15/18 20:54) Ns Iv 1000 Ml (Sodium Chloride 0.9%) (07/15/18 21:09) Influenza A And B Antigens (07/15/18 21:09) Ketorolac Injection (Toradol Injection) (07/15/18 21:09) Manual Differential (07/15/18 21:15) Hs C Reactive Protein (07/15/18 21:34) Erythrocyte Sedimentation Rate (07/15/18 21:34) Rx-Oseltamivir Caps (Rx-Tamiflu Caps) (07/15/18 22:08) Vital Signs/I&O 07/15/18 20:22 Temp 99.3 Pulse 90 Resp 20 B/P (MAP) 133/81 (98) Pulse Ox 98 O2 Delivery Room Air Blood Pressure Mean: 98 Initial ECG Impression Date: Jul 15, 2018 Initial ECG Impression Time: 21:13 Initial ECG Rate: 84 Initial ECG Rhythm: Normal Sinus Initial ECG Intervals: Normal Initial ECG Impression: Normal Initial ECG Comparisson: No Previous ECG Available Comment ECG reviewed by Dr. Vo. Diagnostic Imaging Diagonstic Imaging: Xray Plain Films/CT/US/NM/MRI: chest Comments CHEST 1 VIEW, AP/PA ONLY CHEST 1 VIEW, AP/PA ONLY Indication: Chest pain Comparison: None available. Findings: No focal airspace disease in the visualized lungs. Please note that the posterior lower lobes are poorly evaluated by portable radiography. No pleural effusion or pneumothorax. Normal cardiomediastinal silhouette. Impression: No acute cardiopulmonary process by portable radiography. Dictated by: Dictated on workstation # [id number] Reviewed: Reviewed by Me (radiology report reviewed by me) Departure Communication (Admissions) Patient seen and evaluated. Initial labs, chest x-ray, EKG and flu swab obtained. A findings discussed with the patient. Patient given a take-home pack of Tamiflu prior to discharge. Patient to follow-up with his primary care provider for recheck as an outpatient and to return to the emergency department if symptoms worsen or any other concerns. Impression Primary Impression: Influenza B Disposition: 01 HOME, SELF-CARE Condition: Improved Departure-Patient Inst. Decision time for Depature: 21:55 Referrals: [facility] [place] (PCP) Primary Care Physician Patient Instructions: Flu, Adult (DC) Add. Discharge Instructions: All discharge instructions reviewed with patient and/or family. Voiced understanding. Medications as instructed. Tylenol extra strength [id number] as directed for pain or fever. Ibuprofen 800 mg by mouth every 8 hours as needed for pain or fever. Push fluids. Rest. Follow-up with your primary care provider for recheck as an outpatient if no improvement in symptoms. Return to the emergency department for worsened symptoms or any other concerns. Scripts Albuterol Sulfate (PROAIR HFA) 1 Puff Puff 2 PUFF IH Q6H PRN for SHORTNESS OF BREATH, #1 EA 0 Refills 1 PUFF = 90 MCG Prov: KIMBERLY ESPARZA 07/15/18 Work/School Note: Work Release Form Date Seen in the Emergency Department: Jul 15, 2018 Return to Work: Jul 17, 2018 Restrictions: Return-No Fever (24hrs) KIMBERLY ESPARZA Jul 15, 2018 20:46
[2018-07-15] MEDS ORDERED: NS IV 1000 ML 1,000 ML IV SCH (21:09)
[2018-07-15] MEDS ORDERED: KETOROLAC 30 MG/ML VIAL IVP STA (21:09)
[2018-07-15 21:23] LABS: BASOPHILS % (AUTO) 0 % (0-10); EOSINOPHILS # (AUTO) 0.1 10^3/uL (0.0-0.3); EOSINOPHILS % (AUTO) 1 % (0-10); HEMATOCRIT 40 % (40-54); HEMOGLOBIN 13.8 G/DL (13.3-17.7); LYMPHOCYTES # (AUTO) 1.6 X 10^3 (1.0-4.0); LYMPHOCYTES % (AUTO) 11 % (12-44); MEAN CORPUSCULAR HEMOGLOBIN 31 PG (25-34); MEAN CORPUSCULAR HGB CONC 35 G/DL (32-36); MEAN CORPUSCULAR VOLUME 88 FL (80-99); MEAN PLATELET VOLUME 11.4 FL (7.4-10.4); MONOCYTES # (AUTO) 0.8 X 10^3 (0.0-1.0); MONOCYTES % (AUTO) 5 % (0-12); NEUTROPHILS # (AUTO) 12.3 X 10^3 (1.8-7.8); NEUTROPHILS % (AUTO) 83 % (42-75); PLATELET COUNT 176 10^3/uL (130-400); RED CELL DISTRIBUTION WIDTH 12.9 % (10.0-14.5); WHITE BLOOD COUNT 14.9 10^3/uL (4.3-11.0)
[2018-07-15 21:39] LABS: BAND NEUTROPHILS 0 %; BASOPHILS % (MANUAL) 1 %; EOSINOPHILS % (MANUAL) 2 %; LYMPHOCYTES % (MANUAL) 17 %; MONOCYTES % (MANUAL) 3 %; NEUTROPHILS % (MANUAL) 77 %; RBC MORPH NORMAL
[2018-07-15 21:47] LABS: ALANINE AMINOTRANSFERASE 22 U/L (0-55); ALBUMIN 4.4 GM/DL (3.2-4.5); ALKALINE PHOSPHATASE 96 U/L (40-136); BILIRUBIN,TOTAL 0.6 MG/DL (0.1-1.0); BUN/CREATININE RATIO 14; CALCIUM 9.7 MG/DL (8.5-10.1); CARBON DIOXIDE 22 MMOL/L (21-32); CHLORIDE 108 MMOL/L (98-107); CREATININE SERUM 0.92 MG/DL (0.60-1.30); GFR ESTIMATED > 60; GLUCOSE 99 MG/DL (70-105); MAGNESIUM 2.1 MG/DL (1.8-2.4); POTASSIUM 3.8 MMOL/L (3.6-5.0); SODIUM 141 MMOL/L (135-145); TOTAL PROTEIN 7.1 GM/DL (6.4-8.2)
--- NOTE | 2018-07-15 21:51 | Diagnostic Imaging Report ---
CHEST 1 VIEW, AP/PA ONLY Indication: Chest pain Comparison: None available. Findings: No focal airspace disease in the visualized lungs. Please note that the posterior lower lobes are poorly evaluated by portable radiography. No pleural effusion or pneumothorax. Normal cardiomediastinal silhouette. Impression: No acute cardiopulmonary process by portable radiography. Dictated by: Dictated on workstation # [id number]
[2018-07-15 22:05] LABS: TSH (THYROID ANALYZER) 1.52 UIU/ML (0.35-4.94)
[2018-07-15] MEDS ORDERED: RT-ALBUINH IH (22:08)
[2018-07-15] MEDS ORDERED: RX-OSELTAMIVIR 75 MG (TAMIFLU) BOX OF 10 PO STA (22:08)
[2018-07-15 22:13] VITALS: BP 122/74
== END 2018-07-15 22:18 | disposition home or self-care (01) ==
LOC: ER 20:21
DX: J10.1 Influenza due to other identified influenza virus with other respiratory manifestations (principal); K21.9 Gastro-esophageal reflux disease without esophagitis; F41.9 Anxiety disorder, unspecified; F32.9 Major depressive disorder, single episode, unspecified; Z88.0 Allergy status to penicillin; Z88.1 Allergy status to other antibiotic agents; Z87.19 Personal history of other diseases of the digestive system; Z79.51 Long term (current) use of inhaled steroids
CPT/HCPCS: 36415; 71045; 80053; 83735; 84443; 84484; 85007; 85027; 85652; 86141; 87804; 93005; 93041; 96361; 96374